=== PATIENT | male | born 2000 | race Caucasian/White ===

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

== ENCOUNTER → 2018-04-04 | Outpatient (CLI) | payer MEDICAID ==
--- NOTE | 2018-04-04 18:38 | EKG REPORT ---
SEVERITY:- ABNORMAL ECG - SINUS BRADYCARDIA RIGHT BUNDLE BRANCH BLOCK NONSPECIFIC ST-T CHANGES- INFERIOR LEADS : Confirmed by: Francisco Barcenas MD 04-Apr-2018 18:38:13
--- NOTE | 2018-04-07 11:11 | [facility] ---
[facility] NAME: MARY PORTER [facility] REFERENCE #: [id number] : 2000 DATE OF VISIT: 04/04/2018 PRIMARY CARE: Miguel Griffith M.D., [facility] [place] CHIEF COMPLAINT: Followup cardiomyopathy. HISTORY OF PRESENT ILLNESS: Patient seen with mother at [facility]. 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 He has had mild left ventricular hypertrophy and normal systolic performance of the left ventricle with no mid cavitary or intracavitary left ventricular gradients. His EKG has remained stable with a right bundle branch block pattern with a normal KY interval, neither a long KY nor short KY. He had a Holter monitor after I saw him last. Holter was done October 04 of this year and showed no ventricular ectopics and no dropped beats. He had a few simple atrial premature beats. There was no atrial fibrillation. He was on his atenolol, which he has used for benign palpitations with good symptomatic relief. Therefore, he had a somewhat slow heart rate on the Holter showing 33 beats per minute as the absolute minimum and a maximum heart rate of 110 beats per minute with average of 49 beats per minute. His longest RR was 2.0 seconds. At this visit, he says he no longer has any sense of heart beating forcibly. We know in the past that his forceful heart beats were not abnormal arrhythmia, but we also found that on beta iman he had complete control of this symptom. He has never had sustained tachycardia palpitations. He has never fainted, although he had a vasovagal reaction when I stuck him for blood some years ago when we did his gene testing. His only complaint is that he uses Zyrtec for significant nasal allergies. He does not have chest pain or palpitations or breathlessness. He feels good. He exercises lightly, but he is not in vigorous competitive exercise with having run competitively. MEDICATIONS: Atenolol 50 mg daily. ALLERGIES TO MEDICATION: None. 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 PAST MEDICAL HISTORY: See HPI. No hospitalization. REVIEW OF SYSTEMS: Negative for wheezing or coughing, snoring, GI symptoms, urinary complaints, musculoskeletal problems, headaches. FAMILY HISTORY: His mother has seen an industrial economics professor in [place]. She has not been able to afford to have gene testing done, but she has informed her auto air conditioning apprentice about her son's diagnosis. There are no sudden deaths in the cardiac family history and no individuals are known to have definite cardiomyopathy. PHYSICAL EXAMINATION: Weight 179 pounds, height 69 inches, blood pressure 126/53, heart rate 49. General exam is a well-appearing, fit, young adult. His color and perfusion are excellent. I note no JVD. Lungs clear bilateral. Easy respiratory pattern. Precordial activity normal. Supine, he has a somewhat squeaky systolic murmur, but when he is standing, I hear no murmur. There is a soft S4. It is subtle. A 12-lead electrocardiogram is identical in every respect with his previous electrocardiogram. It shows a right bundle branch block pattern and the QRS width is about 145 milliseconds. The QTC is very normal at 439 and he has a very normal KY interval of 150 milliseconds. It is neither short nor long. Echocardiogram is done and is identical to his echo of August 7 months ago. He has mild posterior wall hypertrophy with a diastolic LV posterior wall dimension of about 1 to 1.1 cm and a diastolic septal dilator, which is about 1.1 cm, but is significantly thicker if one includes thickened muscle bundles that are part of the right ventricle on the interventricular septum. His LV ejection performance is normal and he has no hypercontractility within the apical gradient or mid cavitary gradient. He has no systolic anterior motion of the mitral valve. He does have normal mitral regurgitation. His E:A wave pattern looks normal at the mitral inflow. It is very difficult to know what his exact natural history will be. Many patients with mutations in this gene have a pattern on EKG resembling WPW syndrome, and they actually do develop supraventricular arrhythmias or atrial tachycardias or atrial fibrillation and they develop a rapid ventricular response. In other words, the WPW pattern is one of the predictors of life-threatening arrhythmias in a patient with this genetic problem. He does not have this. Other patients with this condition have heart block with long KY interval and he never has conduction abnormalities. He is bradycardia, but part of the sinus bradycardia is his not very high dose of atenolol, which has controlled his benign sense of heart pounding, which we documented in the past was not abnormal arrhythmia. He has a tendency towards mild systolic pressure elevation as we saw today in the clinic and I am going to go ahead and continue his atenolol 50 mg. He knows that he must report any symptoms of presyncope or dizziness, but he denies such symptoms now, and in fact, denies all symptoms. I reviewed the latest review article on this genetic mutation cardiomyopathy, which was published in Circulation: Arrhythmia and Electrophysiology, in August 2015 by authors Alexandra Main, et al, and this article does make clear this is a very rare condition making it very difficult to know which patients are going to have risk stratification indicating a defibrillator or pacemaker. A quote from this article states identification of patients who could benefit from ICD therapy for primary prevention is still not clear. It notes individual risk factors need to be evaluated, such as family history of sudden cardiac , syncope of suspected arrhythmic origin, marked hypertrophy, nonsustained ventricular tachycardia on monitoring, and that patterns of pre-excitation and AD conduction defects can be predictors of poor outcome. He really does not fit any of those. This article also suggests that all of literature available reviewed suggests that sudden occurs in about 10% of patients and many are due to ventricular fibrillation, which derives from SVT degeneration, which of course, would happen when there is a WPW pattern so common in these patients. He does not have the WPW. I still talked frankly him and his mother that we do not really know how to predict that he has no risk of a catastrophic arrhythmia, merely that it is not the rule in these patients, merely a possibility and that many of the predictors that these genetic mutation patients have who go on to have sudden cardiac collapse he himself does not. I think he needs to be followed at least yearly and we should bring him back early in the summer next year. I told him I would look over his chart and information and decide if we want to get a treadmill done on him as he gets ready to go back to college this fall. I called in his refill to the [facility] in [place]. Patient's phone numbers are as follows: Patient is [phone] and mother is [phone]. ERROL ROGERS MD [id number] PHY#: [id number] ID: [id number] JOB#: [id number] ACCT: [id number] cc:ERROL ROGERS MD [facility], [place], [place] >
--- NOTE | 2018-04-07 11:21 | NONINVASIVE CARDIOLOGY REPORT ---
ECHOCARDIOGRAPHY REPORT [id number] ROOM#: DATE OF SERVICE: 04/04/2018 : 2000 [facility] REFERENCE: [id number] ORDER #: [id number] INDICATION: Followup of glycogen storage disease, cardiomyopathy, PRKAG2 PATIENT WEIGHT: 179 pounds HEIGHT: 69 inches REPORT This echocardiogram shows no significant difference compared to the echo of August of 2017. There is modest left ventricular hypertrophy in the short axis view at the level of the papillary muscles. In the long axis view the septal thickness is 1.1 to 1.2 cm. It appears thicker than this because there is hypertrophy to abnormal muscle of muscle of right ventricle on the septal surface, which does contribute to more abnormal septal thickening. The posterior LV wall has a diastolic diameter of 1 cm to 1.1, which is within normal limits, although visual impression is one of mild hypertrophy during systole. The left atrium is not enlarged. The LV systolic contraction is normal but neither hypercontractile nor hypocontractile. There is no apical obstructive gradient and there is no LV outflow obstructive gradient from a symmetric septal hypertrophy. There is no systolic anterior motion of the mitral valve. There is mild normal mitral regurgitation on color mapping. The Doppler profiles are normal at the valves and the E/A ratio of mitral valve appears normal. The right ventricle is not turgid and shows no free wall abnormal thickening but does show the muscle bundles on the septal side of the right ventricle cavity as eluded too. CARDIAC DIMENSIONS: LVED 4.4 cm, LVES 2.6 cm, left atrium 2.8 cm, LV wall diastolic 1.0 cm, septal 1.1 cm not including right ventricular muscle bundles on the septum. DOPPLER VELOCITIES: Aorta 1.35 m/sec, pulmonary 0.74 m/sec, mitral E-wave 0.84, mitral A-wave0.34 m/sec, descending aorta 1.3 m/sec. FINAL IMPRESSION: HYPERTROPHIC CARDIOMYOPATHY RELATED TO GLYCOGEN STORAGE DISEASE OF THE HEART ELUDED TO MD INDICATION. THERE IS NO MID-CAVITARY OBSTRUCTIVE GRADIENTS OR OUTFLOW GRADIENT AND NO SIGNIFICANT CHANGE COMPARED TO PREVIOUS ECHO. INTERPRETING PHYSICIAN: ERROL ROGERS MD /: [id number] TT: 1041 ID: [id number] /: [id number] TD: 2234 JOB: [id number] cc:ERROL ROGERS MD [facility], [place], [place] > [facility]
== END ==
LOC: PC 13:33
PROVIDERS: ATTEND Pediatrics Pediatric Cardiology
DX: Q24.9 Congenital malformation of heart, unspecified (principal)
CPT/HCPCS: 93005; 93010; 93308; 93321; 93325

== ENCOUNTER → 2018-04-11 | Outpatient (CLI) | payer MEDICAID | LOC: PC 14:27 | PROVIDERS: ATTEND Pediatrics Pediatric Cardiology | DX: I42.9 Cardiomyopathy, unspecified (principal) | CPT/HCPCS: 93017 ==